=== PATIENT | female | born 1980 | race Two or more races ===

== ENCOUNTER 2024-09-28 15:30 | Outpatient (RCR) | payer MEDICAID, SELFPAY ==
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
--- NOTE | 2024-09-28 15:59 | PT.ODAYNRPT ---
PT Outpatient Daily Note OP Daily Note Outpatient Physical Therapy Treatment Date: 09/28/24 Visit Reasons: Pain in Right shoulder Subjective: Pt reports 8/10 shoulder pain, shares that is what her pain scale usually is. Objective: Please see flow sheet for ther ex list. Assessment: Pt performed AAROM with pain, instructed to perform within tolerable range, pt agreed. Applied cold pack at end of session. Plan: Assess response to treatment. Length of Time (minutes) of Treatment: 30 Minutes Procedure Charges Therapeutic Exercise 30 minutes: Yes
--- NOTE | 2024-10-19 09:16 | PTNOTE_ITS ---
PT OP Progress/Discharge Note Date of Service: 10/19/24 Progress Note/DC Note Progress Note/Discharge Note: DC Note Patient Information Visit Reasons: Pain in Right shoulder Service Discharge Date: 10/19/24 Status Assessment: Pt has been seen for 2 visits (eval + 1 visit). Pt last treated on 09/28/24. Pt no showed 10/05 and 10/16 appt. At this time Pt will be d/c from care due to non- compliance per attendance policy. Pt did not meet set goals in therapy; thank you for your referrals
== END 2024-10-20 23:59 | disposition home or self-care (01) ==
LOC: CPTX 15:30
PROVIDERS: PCP Nurse Practitioner; Referring Provider Nurse Practitioner; Visit Provider Nurse Practitioner
DX: M25.511 Pain in right shoulder (principal); S49.91XD Unspecified injury of right shoulder and upper arm, subsequent encounter; V89.2XXD Person injured in unspecified motor-vehicle accident, traffic, subsequent encounter
CPT/HCPCS: 97110; 97162

== ENCOUNTER 2024-10-27 14:12 | Emergency (ER) | payer MEDICAID, SELFPAY ==
[2024-10-27 14:31] VITALS: BP 124/79; PULSE 78; RESP 18; TEMP 36.6; O2SAT 97; BMI 28.3
--- NOTE | 2024-10-27 14:47 | EDNOTE_ITS ---
ED Wound/Laceration-RME/HPI General Chief Complaint: Wound/Laceration Stated Complaint: RIGHT HAND LAC Time Seen by Provider: 10/27/24 14:15 Arrival date/time: 10/27/24 14:12 44-year-old female presents to the emergency dept today for complaint of laceration to right hand Limitations: no limitations Related Data Allergies Allergy/AdvReac Type Severity Reaction Status Date / Time No Known Allergies Allergy Verified 10/27/24 14:14 Review of Systems Review of Systems Systems Reviewed: All systems reviewed, normal except as documented Constitutional Constitutional: Reports system reviewed and no additional complaints, except as documented, Denies fever(s) and Denies headache(s) Eyes Eyes: Reports system reviewed and no additional complaints, except as documented and Denies blurry vision ENT Ears, Nose, Mouth, and Throat: Reports system reviewed and no additional complaints, except as documented, Denies headache(s), Denies nasal congestion and Denies nasal discharge Cardiovascular Cardiovascular: Reports system reviewed and no additional complaints, except as documented, Denies chest pain and Denies dyspnea Respiratory Respiratory: Reports system reviewed and no additional complaints, except as documented, Denies chest congestion, Denies cough and Denies dyspnea Gastrointestinal Gastrointestinal: Reports system reviewed and no additional complaints, except as documented and Denies abdominal pain Integumentary/Breasts Skin/Breast: Reports system reviewed and no additional complaints, except as documented, Denies rash and Reports wounds (Laceration right hand) Neurologic Neurologic: Reports system reviewed and no additional complaints, except as documented, Reports as per HPI and Denies headache(s) Past Medical History Social History SMOKING STATUS: Never smoker ED Exam General Limitations: Present no limitations General appearance: Present alert and in no apparent distress Head Head exam: Present atraumatic Eye Eye exam: Present normal appearance, PERRL and EOMI ENT ENT exam: Present normal exam, normal oropharynx and mucous membranes moist Neck Neck exam: Present normal inspection, full ROM and trachea midline Chest Chest inspection: Present normal inspection and symmetric chest wall rise Respiratory Respiratory exam: Present normal lung sounds bilaterally Cardiovascular Cardiovascular exam: Present regular rate, normal rhythm and normal heart sounds Abdominal Exam Abdominal exam: Present soft and normal bowel sounds Extremities Exam Extremities exam: Present full ROM and tenderness (Laceration hand); Absent joint swelling Back Exam Back exam: Present normal inspection and full ROM Neurological Exam Neurological exam: Present alert, oriented X3 and CN II-XII intact Psychiatric Psychiatric exam: Present normal affect and normal mood Skin Skin exam: Present warm, dry and other (Laceration right hand) Course Quality Measures none Orders Category Date Time Status Set Up Suture Tray STAT Care 10/27/24 14:35 Active Wound Care NOW Care 10/27/24 14:35 Active Lidocaine 1% 20 ml [Xylocaine 1% 20 ML] Med 10/27/24 14:35 Discontinued 20 ml INFL X1 ONE TET,DIP/PERT AC (Adult)-Tdap [Boostrix Adult (Tdap) Med 10/27/24 14:35 Discontinued Vacc] 0.5 ml IMI .ONCE ONE Vital Signs Vital signs: Vital Signs Temperature 97.9 F 10/27/24 14:31 Pulse Rate 78 10/27/24 14:31 Respiratory Rate 18 10/27/24 14:31 Blood Pressure 124/79 10/27/24 14:31 Pulse Oximetry (%) 97 10/27/24 14:31 Oxygen Delivery Method Room Air 10/27/24 14:31 O2 saturation 97% room air within normal limits Procedures -ED Laceration Laceration 1: Site: hand Side (If applicable): right Size (cm): 2 Description: linear Depth: simple, single layer Local Anesthetic: lidocaine 1% Amount of anesthesia used (mL): 2 Pre-repair: irrigated extensively Skin layer closed with: nylon Suture size (cm): 4-0 Number of sutures: 3 Laceration 2: Site: hand Side (If applicable): right Size (cm): 1 Description: linear Depth: simple, single layer Local Anesthetic: lidocaine 1% Amount of anesthesia used (mL): 1 Pre-repair: wound explored Skin layer closed with: nylon Suture size (cm): 4-0 Number of sutures: 1 Technique: simple, interrupted Wound / Laceration MDM Narrative MDM Narrative:: 44-year-old female presents to the emergency department today for complaint of laceration to right hand On exam patient has laceration of the right hand no evidence of tendon ligamentous injury Wound irrigated copiously laceration. Tetanus updated Patient has 2 separate lacerations 1 approximately 2 cm at the base of the right index finger and another 1 approximate half a centimeter to the medial aspect of the right index finger Patient discharged home in no distress to follow-up with primary care doctor in the next 24 to 48 hours and for any worsening symptoms to return to the ER i mmediately Patient data External records reviewed:: [facility] previous records Clinical information provided by:: patient Social determinants that could affect healthcare access:: none Patient has the following chronic illnesses:: None How is presenting disease/condition affected by chronic disease/condition?: no chronic disease Evaluation data The following diagnostics were reviewed and interpreted by me:: other (specify) (N/A) Lab and/or radiology exams considered but not ordered:: Considered not ordered Interpretation Summary: N/A Medications / Prescriptions Medications or Prescriptions considered but not ordered:: Given Medication administrations:: Medication Administration History Discontinued Medications Diphtheria/Tetanus/Acell Pertussis (Diphth,Pertuss(Acell),Tet Vac 0.5 Ml Syr- Adult) 0.5 ml IMi .ONCE ONE Stop: 10/27/24 14:36 Lidocaine HCl (Lidocaine Hcl 1% 20 Ml Vial) 20 ml INFL X1 ONE Stop: 10/27/24 14:36 Given Consultations Consultation(s) initiated? (list below): No Diagnosis Wound Differential Diagnosis: laceration, abrasion and avulsion of skin Most likely diagnosis given after review of the tests above:: Laceration Admission Indicated Admission indicated?: not indicated Admission Request Was there a request for admission?: No Disposition Plan Disposition Plan: Discharge Discharge Attestation Discharge Attestation: The patient and all family members were given an opportunity to ask questions and understood the discharge instructions. Discharge instructions specifically effects, indications for sooner follow up or return to the emergency department, and the expected course of current diagnosis. Patient condition: Stable Discharge Plan Plan Patient Disposition: HOME (Self Care) Discharge Disposition comment: Stable Prescriptions/Referrals Referrals: Christian Mina PA-C [Primary Care Provider] - 10/29/24 Problem List Clinical Impression: Laceration of hand, right Patient/Caregiver Discharge Instructions Education Materials: ED Scar Tips to Minimize Additional Instructions: Please follow up with your primary care doctor in the next 24-48hrs for any worsening symptoms return here immediately Please have sutures removed in 10 days Print Language: Maldivian Stand Alone Forms: Sary Award Info., Work/School Release, Patient Portal Info Letter Vaccines Vaccines Given During Stay: TDaP CHANDLER/WYATT Supervising Physician CHANDLER/WYATT Supervising Physician: dr boles
[2024-10-27] MEDS: DIPHTH,PERTUSS(ACELL),TET VAC 0.5 ML SYR- ADULT IMi (15:31)
[2024-10-27] MEDS: LIDOCAINE HCL 1% 20 ML VIAL INFL (15:34)
== END 2024-10-27 15:37 | disposition home or self-care (01) ==
PROVIDERS: Emergency Provider Family Medicine; PCP Physician Assistant
DX: S61.411A Laceration without foreign body of right hand, initial encounter (principal); X58.XXXA Exposure to other specified factors, initial encounter; Z23 Encounter for immunization
CPT/HCPCS: 12004; 90471; 90715; 99283; J3490

== ENCOUNTER 2025-05-13 14:09 | Outpatient (RCR) | payer MEDICAID, SELFPAY ==
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
== END 2025-05-22 23:59 | disposition home or self-care (01) ==
LOC: CPTX 14:09
PROVIDERS: PCP Nurse Practitioner Family; Referring Provider Nurse Practitioner Family; Visit Provider Nurse Practitioner Family
DX: M25.511 Pain in right shoulder (principal); G89.29 Other chronic pain
CPT/HCPCS: 97162